=== PATIENT | male | born 1980 | race American Indian/Alaskan Native ===

== ENCOUNTER 2021-10-21 05:58 | Day surgery (SDC) | payer MEDICARE ==
[2021-10-21] MEDS ORDERED: SODIUM CHLORIDE 0.9% 1000 ML 1,000 ML IV SCH (06:00)
[2021-10-21] MEDS ORDERED: MIDAZOLAM 2 MG/2 ML INJ IV NR (06:00)
[2021-10-21] MEDS ORDERED: ceFAZolin/Water 2 GM/20 ML 2 GM/20 ML SYRINGE IV NR (06:00)
[2021-10-21 06:54] LABS: Hematocrit 38.4 % (35.5-45.6); Mean Corpuscular HGB Conc 34 % (32-34); Mean Corpuscular Volume 92 fl (84-94); Platelet Count 225 K/mm3 (140-440); Red Blood Count 4.17 M/mm3 (3.65-5.03)
[2021-10-21 07:02] LABS: Red Cell Distribution Width 20.7 % (13.2-15.2)
[2021-10-21 07:06] LABS: Calcium 10.2 mg/dL (8.4-10.2)
--- NOTE | 2021-10-21 07:13 | Anesthesia Consultation ---
<JOSE EDUARDO ARREOLA - Last Filed: 10/21/21 07:09> Anesthesia Consult and Med Hx Date of service: 10/21/21 - Airway Anesthetic Teeth Evaluation: Good ROM Head & Neck: Adequate Mental/Hyoid Distance: Adequate Mallampati Class: Class III Intubation Access Assessment: Possibly Difficult - Pulmonary Exam CTA: Yes - Cardiac Exam Cardiac Exam: RRR - Pre-Operative Health Status ASA Pre-Surgery Classification: ASA4 Proposed Anesthetic Plan: General, MAC - Pre-Anesthesia Comment Pre-Anesthesia Comments: Plan for MAC but patient is open to general. - Pulmonary Hx Smoking: No Hx Sleep Apnea: Yes (uses CPAP every night) - Cardiovascular System Hx Hypertension: Yes Hx Heart Attack/AMI: No Hx Cardia Arrhythmia: No - Central Nervous System Hx Neuromuscular Disorder: Yes (charcot's feet, in wheelchair for last 2 weeks. 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 ) Hx Liver Disease: No Hx Insulin Dependent Diabetes: Yes (FBS 114) - Hematic Hx Anemia: Yes (IRON INFUSIONS; Hgb 13) - Other Systems Hx Cancer: No Hx Obesity: Yes - Additional Comments Anesthesia Medical History Comments: No GAC, No FHAC. <LARS FORDE - Last Filed: 10/21/21 07:31> Anesthesia Consult and Med Hx - Pre-Operative Health Status ASA Pre-Surgery Classification: ASA4 Proposed Anesthetic Plan: General - Pre-Anesthesia Comment Pre-Anesthesia Comments: Plan GA. - Cardiovascular System Hx Hypertension: Yes - Central Nervous System Hx Neuromuscular Disorder: Yes (neuropathy) - Endocrine Hx End Stage Renal Disease: Yes (last HD 10/20/21) Hx Insulin Dependent Diabetes: Yes - Other Systems Hx Obesity: Yes (BMI 36)
--- NOTE | 2021-10-21 07:15 | Anesthesia Day of Surgery ---
Anesthesia Day of Surgery - Day of Surgery Patient Examined: Yes Patient H&P Reviewed: Yes Patient is NPO: Yes Beta Blockers: No
[2021-10-21] MEDS ORDERED: ONDANSETRON 4 MG/2 ML INJ IV PRN (07:31)
[2021-10-21] MEDS ORDERED: fentaNYL 100 MCG/2 ML INJ IV PRN (07:31)
[2021-10-21] MEDS ORDERED: HYDROcodone/ACETAMINOPHEN 5-325 MG TAB PO PRN (07:31)
[2021-10-21] MEDS ORDERED: dexAMETHasone 20 MG/5 ML VIAL ONE (07:37)
[2021-10-21] MEDS ORDERED: ROCURONIUM 50 MG/5 ML INJ IV ONE (07:37)
[2021-10-21] MEDS ORDERED: SUCCINYLCHOLINE CHLORIDE 200 MG/10 ML INJ MDV ONE (07:37)
[2021-10-21] MEDS ORDERED: HEPARIN 10,000 UNITS/10 ML VIAL ONE (07:37)
[2021-10-21] MEDS ORDERED: HYDROmorphone 1 MG/1 ML INJ ONE (07:37)
[2021-10-21] MEDS ORDERED: fentaNYL 100 MCG/2 ML INJ ONE (07:38)
[2021-10-21] MEDS ORDERED: ePHEDrine SULFATE 50 MG/1 ML INJ ONE ×2 (07:38→08:58)
[2021-10-21] MEDS ORDERED: SODIUM CHLORIDE 0.9% 500 ML 500 ML ONE (07:38)
[2021-10-21] MEDS ORDERED: propofoL 200 MG/20 ML VIAL IV ONE (07:38)
[2021-10-21] MEDS ORDERED: BUPIVACAINE/PF (0.5%) 5 MG/1 ML 30 ML VIAL INFILTRATI ONE ×2 (07:38→10:28)
[2021-10-21] MEDS ORDERED: ceFAZolin/Water 2 GM/20 ML 2 GM/20 ML SYRINGE IV ONE (07:38)
[2021-10-21] MEDS ORDERED: ceFAZolin/STERILE WATER 2 GM/20 ML SYRINGE IV NR (08:05)
[2021-10-21] MEDS ORDERED: SODIUM CHLORIDE 0.9% 250ML 250 ML ONE (08:53)
[2021-10-21] MEDS ORDERED: rifAMPin 600 MG VIAL ONE (08:53)
[2021-10-21] MEDS ORDERED: SODIUM CHLORIDE 0.9% IRR 1,500 ML BOTTLE IR ONE (09:10)
[2021-10-21] MEDS ORDERED: SODIUM CHLORIDE 0.9% 500 ML IVPB IRRIGATION ONE (09:11)
[2021-10-21] MEDS ORDERED: SODIUM CHLORIDE 0.9% 250 ML IVPB IR ONE (09:12)
[2021-10-21] MEDS ORDERED: rifAMPin 600 MG VIAL IV ONE (09:13)
--- NOTE | 2021-10-21 11:03 | Short Stay Summary ---
Short Stay Documentation Date of service: 10/21/21 Narrative H&P: See H&P - History H&P: obtained from office - Allergies and Medications Current Medications: Allergies amlodipine [From Norvasc] Allergy (Verified 10/19/21 11:39) Rash apple Allergy (Verified 10/19/21 11:39) Vomiting CILANTRO Allergy (Uncoded 10/19/21 11:39) Vomiting Home Medications Medication Instructions Recorded Confirmed Last Taken Type Calcium Acetate [Phoslo] 1,334 mg PO TID 10/19/21 10/21/21 10/20/21 18:00 History FLUoxetine [PROzac] 20 mg PO QDAY 10/19/21 10/21/21 10/19/21 09:00 History Insulin Glargine,Hum.rec.anlog 25 unit SQ DAILY 10/19/21 10/21/21 10/20/21 23:00 History [Lantus Solostar] Insulin Lispro [Humalog 100 18 units SQ AC 10/19/21 10/21/21 10/20/21 23:30 History UNITS/ML Kwikpen] buPROPion SR [Wellbutrin Sr] 150 mg PO QAM 10/19/21 10/21/21 10/19/21 09:00 History lamoTRIgine [LaMICtal] 25 mg PO QDAY 10/19/21 10/21/21 10/20/21 09:00 History Active Medications Hydrocodone Bitart/Acetaminophen (Hydrocodone/Acetaminophen 5-325 Mg Tab) 2 each PO ONCE PRN PRN Reason: Pain, Moderate (4-6) Stop: 10/21/21 12:00 Fentanyl (Fentanyl 100 Mcg/2 Ml Inj) 50 mcg IV Q5MIN PRN PRN Reason: Pain , Severe (7-10) Stop: 10/21/21 23:00 Sodium Chloride (Nacl 0.9% 1000 Ml) 1,000 mls @ 42 mls/hr IV DIRECT BARTOLO Stop: 10/21/21 23:59 Last Admin: 10/21/21 07:30 Dose: 42 mls/hr Documented by: Cefazolin Sodium 3 gm/ Sodium (Chloride) 100 mls @ 100 mls/30 min IV PREOP NR; Protocol Stop: 10/21/21 23:59 Midazolam HCl (Midazolam 2 Mg/2 Ml Inj) 2 mg IV PREOP NR Stop: 10/21/21 23:59 Ondansetron HCl (Ondansetron 4 Mg/2 Ml Inj) 4 mg IV ONCE PRN PRN Reason: Nausea And Vomiting Stop: 10/21/21 12:00 - Brief post op/procedure progress note Date of procedure: 10/21/21 Pre-op diagnosis: Complications of Dialysis Access Post-op diagnosis: same (Complications of Dialysis Access) Procedure: 1. Revision of Left Nikhil Arteriovenous Fistula With Resection of Pseudoaneurysm and Repair with Interposition 7 mm Bovine Artegraft 2. Ligation of Distal Left Radial Artery Anesthesia: GETShreya Surgeon: SYLVIE CORREA Estimated blood loss: minimal Pathology: list (Left arm AV fistula pseudoaneurysm) Specimen disposition: other (Sent to pathology) Condition: stable - Disposition Condition at discharge: Good Disposition: 01 HOME / SELF CARE / HOMELESS Short Stay Discharge Plan Activity: other (No heavy lifting with left arm for 2 weeks. Okay to use the left arm arteriovenous fistula for dialysis however do not use the revised portion until cleared by vascular surgeon.) Wound: open to air, keep clean and dry, other (Okay to wash the left arm wounds with soap and water but do not soak in water for 2 weeks.) Follow up with: SYLVIE CORREA MD [Staff Physician] - 14 Days Prescriptions: HYDROcodone/APAP 7.5-325 [[place] 7.5/325] 1 each PO Q6HR PRN #40 tablet PRN Reason: Pain
--- NOTE | 2021-10-21 11:17 | Operative Report ---
Operative Report Operative Report: Date of Procedure: 10/21/2021 Pre-operative Diagnosis: Complications of Dialysis Access Post-operative Diagnosis: Same Procedure(s): 1. Revision of Left Nikhil Arteriovenous Fistula With Resection of Pseudoaneurysm and Repair with Interposition 7 mm Bovine Artegraft 2. Ligation of Distal Left Radial Artery Surgeon: Jan Maier M.D. District Or District Office Director: None Anesthesia: General Endotracheal Anesthesia EBL: Minimal Counts: Correct Complications: None Condition: Stable Findings: Palpable thrill in left arm arteriovenous access at the completion of the case. Less than 2 seconds capillary refill in the left hand after ligation of the distal radial artery. Specimen: Left arm arteriovenous fistula pseudoaneurysm was sent to pathology. Indication: The patient is a 41-year-old male with a history of end-stage renal disease who is on hemodialysis through a left Nikhil arteriovenous fistula. He has 2 pseudoaneurysms in the access that require revision. He also complains of numbness in the hand that improves with either compression of the fistula or compression of the distal radial artery suggesting he has steal syndrome. He is in need of a staged revision of the pseudoaneurysms to prevent further ulceration and hemorrhage. He also requires ligation of the distal radial artery to resolve his symptoms of steal syndrome. He was given the risk, benefits, and alternative procedures and consented to the procedure. Description of Procedure: The patient was brought to the operating room and laid in supine position. After general endotracheal anesthesia was achieved his left arm was prepped and draped in normal sterile fashion. A longitudinal incision was made, on the medial aspect of the arm, extending from the normal portion of the arterial inflow to the normal portion of the venous outflow of the pseudoaneurysm closest to the arterial anastomosis. This pseudoaneurysm was managed for secondary to an ulceration overlying the pseudoaneurysm. A combination of cautery and sharp dissection was used to carry the incision down to the pseudoaneurysm and Metzenbaum scissors were used to dissect the pseudoaneurysm circumferentially including the normal portion of the arterial inflow as well as the normal portion of the venous outflow. Once this was dissected circumferentially a Kelley-Wick tunneler was used to tunnel along the lateral aspect of the incision, from the arterial inflow towards the venous outflow. A 7 mm Bovine Artegraft was then connected to the Kelley-Wick tunneler and secured in place with a 2-0 silk tie. This was pulled through the tunnel and then infused with heparinized saline to ensure that it had not kinked or twisted. I then beveled the end of t he graft. I systemically heparinized the patient with 3000 units of heparin and then clamped both the arterial inflow as well as the venous outflow with angled DeBakey clamps. I transected the pseudoaneurysm from both the arterial inflow and venous outflow and passed this off as a specimen. I beveled the end of the arterial inflow of the fistula and created an end-to-end anastomosis between the graft and the fistula using two 5-0 Prolene's in running fashion. After completing the anastomosis I placed an angled DeBakey clamp on the graft, just distal to the anastomosis, and released the clamp from the arterial inflow to ensure hemostasis of the anastomosis. Once hemostasis was ensured I replaced the clamp on the fistula and cut the venous outflow portion of the graft to length and beveled the end. I beveled the venous outflow end of the fistula and created an end-to-end anastomosis using two 5-0 Prolene's in running fashion. Prior to completing the anastomosis I flashed the arterial inflow as well as the venous outflow of the fistula and flushed both with heparinized saline. I completed the anastomosis and remove all clamps allowing flow through the fistula which had a palpable thrill. Hemostasis within the wound was achieved with a combination of quick clot and cautery. I used curved Mayos to resect the redundant skin including the portion that had the ulceration. I then made a longitudinal incision in the distal wrist and carried this down to the distal radial artery. I dissected the artery circumferentially and then ligated the artery with a 2-0 silk tie. Evaluation of the hand demonstrated that there was less than 2-second capillary refill. Hemostasis within his wound was achieved with cautery. Once hemostasis was achieved both wounds were anesthetized with 0.5% Marcaine and then closed in 2 layers using 3-0 Vicryl in running fashion the deep dermal layers and 4-0 Monocryl in running fashion the subcuticular layers and then dressed with Dermabond. The patient tolerated the procedure well. All sponge, needle, and instrument counts were correct. The patient was taken to the recovery area in stable condition.
--- NOTE | 2021-10-21 12:31 | Post Anesthesia Evaluation ---
- Post Anesthesia Evaluation Patient Participated: Yes Airway Patent: Yes Stable Respiratory Function: Yes Nausea/Vomiting: No Temp > 96.8F: Yes Pain Manageable: Yes Adequeate Hydration: Yes Anesthesia Complications: No
[2021-10-21 14:30] VITALS: BP 106/54
== END 2021-10-21 12:40 | disposition home or self-care (01) ==
LOC: OR 05:58
PROVIDERS: ATTEND Surgery Vascular Surgery
DX: T82.511A Breakdown (mechanical) of surgically created arteriovenous shunt, initial encounter (principal); Z20.822 Contact with and (suspected) exposure to COVID-19; I12.0 Hypertensive chronic kidney disease with stage 5 chronic kidney disease or end stage renal disease; E11.22 Type 2 diabetes mellitus with diabetic chronic kidney disease; N18.6 End stage renal disease; Z99.2 Dependence on renal dialysis; E11.51 Type 2 diabetes mellitus with diabetic peripheral angiopathy without gangrene; E66.9 Obesity, unspecified; Z68.36 Body mass index [BMI] 36.0-36.9, adult; G47.33 Obstructive sleep apnea (adult) (pediatric); Z79.899 Other long term (current) drug therapy; Z98.890 Other specified postprocedural states; Y83.8 Other surgical procedures as the cause of abnormal reaction of the patient, or of later complication, without mention of misadventure at the time of the procedure
CPT/HCPCS: 36415; 36832; 37607; 80048; 82962; 85027; 86850; 86900; 86901; 88304; 88311; C1768; J0330; J0690; J1100; J1170; J1644; J2704; J3010; J3490; J7030; J7040; J7050; U0003; J7120; Q0162

== ENCOUNTER 2021-11-06 06:54 | Day surgery (SDC) | payer MEDICARE ==
[~2021-11-06 06:54] MED LIST: SODIUM CHLORIDE 0.9% 1000 ML 1,000 ML ONE; ceFAZolin/Water 2 GM/20 ML 2 GM/20 ML SYRINGE IV NR
[2021-11-06] MEDS ORDERED: BUPIVACAINE/PF (0.5%) 5 MG/1 ML 30 ML VIAL INFILTRATI ONE ×2 (07:15→09:37)
[2021-11-06] MEDS ORDERED: SODIUM CHLORIDE 0.9% 200 ML ONE (07:15)
[2021-11-06] MEDS ORDERED: SODIUM CHLORIDE 0.9% 50 ML ONE (07:15)
[2021-11-06] MEDS ORDERED: LIDOCAINE (1%) 10 MG/1 ML VIAL 20 ML MDV ONE (07:15)
[2021-11-06] MEDS ORDERED: HEPARIN 10,000 UNITS/10 ML VIAL ONE (07:16)
[2021-11-06] MEDS ORDERED: rifAMPin 600 MG VIAL ONE (07:16)
[2021-11-06] MEDS ORDERED: SODIUM CHLORIDE 0.9% 500 ML 500 ML ONE (07:16)
--- NOTE | 2021-11-06 07:20 | Anesthesia Day of Surgery ---
Anesthesia Day of Surgery - Day of Surgery Patient Examined: Yes Patient H&P Reviewed: Yes Patient is NPO: Yes
--- NOTE | 2021-11-06 07:27 | Anesthesia Consultation ---
Anesthesia Consult and Med Hx Date of service: 11/06/21 - Airway Anesthetic Teeth Evaluation: Good, Chipped ROM Head & Neck: Adequate Mental/Hyoid Distance: Adequate Mallampati Class: Class III Intubation Access Assessment: Probably Good - Pulmonary Exam CTA: Yes - Cardiac Exam Cardiac Exam: RRR - Pre-Operative Health Status ASA Pre-Surgery Classification: ASA3 Proposed Anesthetic Plan: General - Pulmonary Hx Smoking: No Hx Asthma: No Hx Respiratory Symptoms: No SOB: No COPD: No Home Oxygen Therapy: No Hx Pneumonia: No Hx Sleep Apnea: Yes (uses CPAP every night) - Cardiovascular System Hx Hypertension: No Hx Coronary Artery Disease: No Hx Heart Attack/AMI: No Hx Angina: No Hx Percutaneous Transluminal Coronary Angioplasty (PTCA): No Hx Cardia Arrhythmia: No Hx Pacemaker: No Hx Internal Defibrillator: No Hx Valvular Heart Disease: No Hx Heart Murmur: No Hx Peripheral Vascular Disease: No - Central Nervous System Hx Neuromuscular Disorder: Yes (neuropathy) Hx Seizures: No CVA: No Hx Back Pain: No Hx Psychiatric Problems: Yes (GAMA) - Gastrointestinal Hx Ulcer: No Hx Gastroesophageal Reflux Disease: No - Endocrine Hx End Stage Renal Disease: Yes Hx Cirrhosis: No Hx Liver Disease: No Hx Insulin Dependent Diabetes: Yes Hx Thyroid Disease: No Hx Hypothyroidism: No Hx Hyperthyroidism: No - Hematic Hx Anemia: Yes (IRON INFUSIONS) - Other Systems Hx Alcohol Use: No Hx Substance Use: No Hx Cancer: No Hx Obesity: Yes (BMI 36) - Additional Comments Anesthesia Medical History Comments: Previous visit 10/21/2021
[2021-11-06] MEDS ORDERED: LIDOCAINE PF 100 MG/5 ML (CARDIAC SYRINGE) IV ONE (07:30)
[2021-11-06] MEDS ORDERED: dexAMETHasone 20 MG/5 ML VIAL ONE (07:30)
[2021-11-06] MEDS ORDERED: HYDROmorphone 1 MG/1 ML INJ IV PRN ×2 (07:30)
[2021-11-06] MEDS ORDERED: SODIUM CHLORIDE 0.9% 1000 ML 1,000 ML IV SCH (07:30)
[2021-11-06] MEDS ORDERED: propofoL 200 MG/20 ML VIAL IV ONE ×2 (07:30→10:46)
[2021-11-06 07:32] LABS: Calcium 9.9 mg/dL (8.4-10.2)
[2021-11-06] MEDS ORDERED: fentaNYL 100 MCG/2 ML INJ ONE (07:34)
[2021-11-06] MEDS ORDERED: ONDANSETRON 4 MG/2 ML INJ IV PRN (08:00)
[2021-11-06] MEDS ORDERED: ePHEDrine SULFATE 50 MG/1 ML INJ ONE (09:17)
[2021-11-06] MEDS ORDERED: PHENYLEPHRINE/NS 1,000 MCG/10 ML SYRINGE (OR USE) IV ONE ×2 (09:35→10:49)
[2021-11-06] MEDS ORDERED: SODIUM CHLORIDE 0.9% 500 ML IVPB IV ONE (09:37)
[2021-11-06] MEDS ORDERED: SODIUM CHLORIDE 0.9% 50 ML IVPB IV ONE (09:37)
[2021-11-06] MEDS ORDERED: SODIUM CHLORIDE 0.9% IRR 1,500 ML BOTTLE IR ONE (09:37)
[2021-11-06] MEDS ORDERED: HEPARIN 10,000 UNITS/10 ML VIAL IV ONE (09:37)
[2021-11-06] MEDS ORDERED: SODIUM CHLORIDE 0.9% 100 ML IVPB IV ONE (09:37)
[2021-11-06] MEDS ORDERED: rifAMPin 600 MG VIAL IV ONE (09:37)
[2021-11-06] MEDS ORDERED: PHENYLEPHRINE 10 MG/1 ML INJ SDV ONE (10:49)
--- NOTE | 2021-11-06 11:36 | Short Stay Summary ---
Short Stay Documentation Date of service: 11/06/21 Narrative H&P: See H&P - History H&P: obtained from office - Allergies and Medications Current Medications: Allergies amlodipine [From Norvasc] Allergy (Verified 10/19/21 11:39) Rash apple Allergy (Verified 10/19/21 11:39) Vomiting CILANTRO Allergy (Uncoded 10/19/21 11:39) Vomiting Home Medications Medication Instructions Recorded Confirmed Last Taken Type Calcium Acetate [Phoslo] 1,334 mg PO TID 10/19/21 11/06/21 11/05/21 17:00 History FLUoxetine [PROzac] 20 mg PO QDAY 10/19/21 11/06/21 11/05/21 09:00 History Insulin Glargine,Hum.rec.anlog 25 unit SQ DAILY 10/19/21 11/02/21 10/20/21 23:00 History [Lantus Solostar] Insulin Lispro [Humalog 100 18 units SQ AC 10/19/21 11/02/21 10/20/21 23:30 History UNITS/ML Kwikpen] buPROPion SR [Wellbutrin SR] 150 mg PO QAM 10/19/21 11/06/21 11/05/21 09:00 History lamoTRIgine [LaMICtal] 25 mg PO QDAY 10/19/21 11/06/21 11/05/21 09:00 History HYDROcodone/APAP 7.5-325 [[place] 1 each PO Q6HR PRN #40 tablet 10/21/21 11/02/21 Unknown Rx 7.5/325] Active Medications Hydromorphone HCl (Hydromorphone 1 Mg/1 Ml Inj) 0.25 mg IV Q10MIN PRN PRN Reason: Pain, Moderate (4-6) Stop: 11/06/21 21:00 Hydromorphone HCl (Hydromorphone 1 Mg/1 Ml Inj) 0.5 mg IV Q10MIN PRN PRN Reason: Pain , Severe (7-10) Stop: 11/06/21 21:00 Sodium Chloride (Nacl 0.9% 1000 Ml) 1,000 mls @ 42 mls/hr IV DIRECT BARTOLO Last Admin: 11/06/21 08:00 Dose: 42 mls/hr Ondansetron HCl (Ondansetron 4 Mg/2 Ml Inj) 4 mg IV ONCE PRN PRN Reason: Nausea And Vomiting Stop: 11/06/21 18:00 - Brief post op/procedure progress note Date of procedure: 11/06/21 Pre-op diagnosis: Complications of Dialysis Access Post-op diagnosis: same Procedure: Revision of Left Arm Arteriovenous Fistula with Excision of Pseudoaneurysm and Repair with Interposition 7 mm Bovine Artegraft Anesthesia: GETA Surgeon: SYLVIE CORREA Estimated blood loss: 50-100ml Pathology: list (Left arm arteriovenous fistula pseudoaneurysm) Specimen disposition: to lab Condition: stable - Disposition Condition at discharge: Good Disposition: HOME / SELF CARE / HOMELESS Short Stay Discharge Plan Activity: other (No heavy lifting with her left arm for 2 weeks.) Wound: open to air, keep clean and dry, other (Okay to shower and wash the left arm wound with soap and water but do not soak in water for 2 weeks.) Special Instructions: other (Okay to use the left arm arteriovenous access, near the distal incision, for dialysis during the next session. Do not access the graft near the new incision until cleared by vascular surgery.) Follow up with: PRIMARY CARE, [Primary Care Provider] - 7 Days SYLVIE CORREA MD [Staff Physician] - 14 Days Prescriptions: HYDROcodone/APAP 7.5-325 [[place] 7.5/325] 1 each PO Q6HR PRN #40 tablet PRN Reason: Pain
--- NOTE | 2021-11-06 11:44 | Operative Report ---
Operative Report Operative Report: Date of Procedure: 11/06/2021 Pre-operative Diagnosis: Complications of Dialysis Access Post-operative Diagnosis: Same Procedure(s): 1. Revision of Left Arm Arteriovenous Fistula with Excision of Pseudoaneurysm and Repair with Interposition 7 mm Bovine Artegraft Surgeon: Jan Maier M.D. Bending Shed Worker: None Anesthesia: General Endotracheal Anesthesia EBL: 50 mL Counts: Correct Complications: None Condition: Stable Findings: There was a palpable thrill in the left arm arteriovenous access at the completion of the case. Specimen: Left arm arteriovenous fistula pseudoaneurysm was sent to pathology. Indication: The patient is a 41-year-old male with a history of end-stage renal disease who was on hemodialysis through a left Nikhil arteriovenous visit. He had 2 large pseudoaneurysms with thinning of the skin that required excision. In an effort to avoid a permacath the decision was made to stage the repair of the 2 pseudoaneurysms. He had excision of the most distal pseudoaneurysm and is now ready for excision and repair of the remaining pseudoaneurysm. He was given the risk, benefits, and alternative procedures and consented to the procedure. Description of Procedure: The patient was brought to the operating room and laid in supine position. After general endotracheal anesthesia was achieved his left arm was prepped and draped in normal sterile fashion. A longitudinal incision was created on the medial aspect of the arm centered over the pseudoaneurysm. A combination of cautery and sharp dissection was used to clear the dissection down to the arterial inflow of the fistula where the caliber was normal and this was dissected circumferentially and controlled with a vessel loop. Sharp dissection was then used to dissect around the normal caliber of the venous outflow of the fistula and this was dissected circumferentially controlled with a vessel loop. Curved nails were then used to dissect circumferentially and around the pseudoaneurysm until it was freed from the surrounding soft tissue. The patient was systemically heparinized with 3000 units of heparin IV and then both the arterial inflow and venous outflow of the fistula were clamped with angled DeBakey clamps and the pseudoaneurysm was transected and passed all as a specimen. The arterial inflow of the fistula was beveled and then a 7 mm Bovine Artegraft, that had been soaked in rifampin, was beveled and sewed in end-to-end fashion using two 5-0 Prolene's running fashion. After completing the anastomosis I clamped the Artegraft with an angled DeBakey clamp, just distal to the anastomosis, and remove the clamp from the arterial inflow the fistula. Hemostasis on the anastomosis was achieved with 6-0 Prolene's in interrupted fashion. Once hemostasis was achieved I cut the graft to length and beveled the end. I then beveled the venous outflow of the fistula and created an end-to-end anastomosis using two 5-0 Prolene's in running fashion. Prior to completing the anastomosis I flash the venous outflow of the fistula as well as the arterial inflow of the fistula and then reclamped both. I flushed the anastomosis with heparinized saline and then completed the closure. I released both clamps allowing flow through the fistula which had a palpable thrill. Hemostasis within the wound was then achieved with a combination of direct pressure, cautery, and quick clot. Once hemostasis was achieved I resected the redundant skin on the lateral flap which contained the ulcerated skin. I then created a subcutaneous flap for the graft to be placed so it was lateral to the incision. I then anesthetized the skin and soft tissue with 0.5% Marcaine. I then placed the graft within the subcutaneous pocket and secured in position with 3-0 Vicryl in interrupted fashion. I then closed the wound in 2 layers using 3-0 Vicryl running fashion in the deep dermal layer and 4-0 Monocryl in a running fashion subcuticular layer and then dressed with Dermabond. The patient tolerated the procedure well. All sponge, needle, and instrument counts were correct. The patient was taken to the recovery area in stable condition.
[2021-11-06 14:20] VITALS: BP 107/62
--- NOTE | 2021-11-06 16:18 | Post Anesthesia Evaluation ---
- Post Anesthesia Evaluation Patient Participated: Yes Airway Patent: Yes Stable Respiratory Function: Yes Nausea/Vomiting: No Temp > 96.8F: Yes Pain Manageable: Yes Adequeate Hydration: Yes Anesthesia Complications: No Block Receding Appropriately: Not Applicable Patient on Ventilator: No
== END 2021-11-06 13:10 | disposition home or self-care (01) ==
LOC: OR 06:54
PROVIDERS: ATTEND Surgery Vascular Surgery
DX: I12.0 Hypertensive chronic kidney disease with stage 5 chronic kidney disease or end stage renal disease (principal); N18.6 End stage renal disease; G47.30 Sleep apnea, unspecified; E66.9 Obesity, unspecified; F41.9 Anxiety disorder, unspecified; F32.9 Major depressive disorder, single episode, unspecified; Z79.899 Other long term (current) drug therapy; Z88.8 Allergy status to other drugs, medicaments and biological substances; Z98.890 Other specified postprocedural states; Z20.822 Contact with and (suspected) exposure to COVID-19
CPT/HCPCS: 36415; 36832; 80048; 82962; 88304; C1757; C1768; J0690; J1100; J1644; J2001; J2370; J2405; J2704; J3010; J3490; J7030; J7040; U0003; 88311; J7120; Q0162